=== PATIENT | male | born 1945 | race Caucasian/White ===

== ENCOUNTER 2017-02-04 12:28 | Inpatient (IN) | payer OTHER, MEDICARE ==
[~2017-02-04] VITALS: Ht 170.2 cm; Wt 74.6 kg
[2017-02-04] VITALS (7 sets, daily range): BP systolic 74–101; BP diastolic 40–85
[~2017-02-04 12:28] MED LIST: ACIPHEX20 MG PO; ALTACE5 MG PO; AMBIEN10 MG PO; AMLODIPINE BESYL5 MG PO; AMOX TR-K CLV1 EAC4 PO; AMOXICILLIN875 MG PO; ATROVENT 0.03%30 ML BOTH NARES; CALCET CREAMY1 EACH PO; CALCI-CHEW500 MG PO; CRESTOR40 MG PO; DILAUDID2 MG PO; DOCUSATE SODIU100 MG PO; ECOTRIN325 MG; ENALAPRIL MALEA20 MG PO; FUROSEMIDE40 MG PO; IMDUR30 MG PO; KLOR-CON 1010 ME1 PO; KLOR-CON M2020 MEQ PO; LANTUS 3 M100 UNITS1 SC; LANTUS 3 M100 UNITS1 SQ; LASIX20 MG PO; LEVETIRACETAM500 MG PO; LORAZEPAM0.5 MG PO; LYRICA75 MG PO; METOPROLOL SUC200 MG PO; METOPROLOL SUCC50 MG PO; MIRALAX255 GM PO; MORPHINE SULFAT15 M1 PO; NIASPAN,SLO-NI750 MG PO; NITROSTAT0.4 MG SL; NORVASC2.5 MG PO; NOVOLOG PE100 UNITS/ SC; NOVOLOG PE100 UNITS/ SQ; ONCE DAILY1 EACH PO; OXYCODONE HCL5 MG PO; PERCOCET 10/1 TABLET PO; PERCOCET 5/31 TABLET PO; PLAVIX75 MG PO; PROAIR HFA8.5 GM IH; PROTONIX40 MG PO; PROVENTIL,2.5 MG/3 M PO; REGLAN10 MG PO; SPIRIVA1 INHALATI IH; SYMBICORT60 INHALAT IH; TOPROL XL50 MG PO; TRAZODONE HCL50 MG PO; VICODIN ES 7.51 EAC1; VITAMIN B-12500 MC5 SL; VITAMIN B12-FO1 EACH PO; VITAMIN D22000 UNIT PO; VITAMIN D35000 UNIT PO; ZOLOFT100 MG PO
[2017-02-04 13:47] LABS: CREATININE 6.5 mg/dL (0.6-1.3)
[2017-02-04 14:01] LABS: ADD MIUA? YES; BILIRUBIN NEGATIVE; BLOOD NEGATIVE; COLOR DK YELLOW ((YELLOW)); GLUCOSE (STRIP) NEGATIVE; KETONES NEGATIVE; LEUKOCYTES NEGATIVE; NITRITE NEGATIVE; PROTEIN (STRIP) 30; SPECIFIC GRAVITY 1.024 (1.000-1.030); UROBILINOGEN 0.2 MG/DL (0.2-1.0)
[2017-02-04 14:06] LABS: BACTERIA RARE /HPF; BUDDING YEAST 2+; EPITHELIAL CELLS RARE /HPF; HYALINE CASTS 0-5 /LPF; MUCUS TRACE /LPF; RED BLOOD CELLS 0-5 /HPF (0-5); UCUL ADDED? NO; WHITE BLOOD CELLS 0-5 /HPF (0-5)
[2017-02-04 14:36] LABS: EOSINOPHIL (%) 0.1 % (0-5); HEMATOCRIT 32.9 % (38.0-50.0); IMMATURE GRANULOCYTE (%) 0.8 % (0.0-0.7); IMMATURE GRANULOCYTE COUNT 0.2 K/uL; INSTRUMENT ABS NEUTROPHIL CT 16.9 K/uL; LYMPHOCYTE COUNT 3.2 K/uL (1.0-2.8); MCH 30.3 PG (29.0-34.0); MCHC 32.5 G/DL (30.0-36.0); MCV 93.2 FL (86-99); MEAN PLAT.VOLUME 10.2 uM^3 (9.0-12.4); MONOCYTE (%) 4.5 % (3-12); NEUTROPHIL (%) 79.5 % (45-76); NEUTROPHIL COUNT 16.9 K/uL (1.8-6.4); PLATELET COUNT 272 K/uL (156-360); RBC DIS.WIDTH-SD 43.8 % (39-53); RED BLOOD COUNT 3.53 M/uL (4.00-5.50); WHITE BLOOD COUNT 21.2 K/uL (4.1-10.2)
[2017-02-04 14:57] LABS: TROP-I INTERPRETATION POSITIVE
[2017-02-04 15:01] LABS: TROPONIN-I 6.02 ng/mL (0.0-0.30)
[2017-02-04 15:04] LABS: CHLORIDE 90 mEq/L (99-109); POTASSIUM 3.8 mEq/L (3.7-5.4); SODIUM 140 mEq/L (136-147)
[2017-02-04 15:06] LABS: GLUCOSE 226 mg/dL (70-99)
[2017-02-04 15:07] LABS: ANION GAP 46 MEQ/L (2-14)
[2017-02-04 15:08] LABS: TOTAL BILIRUBIN 0.3 mg/dL (0.0-1.0)
[2017-02-04 15:09] LABS: ALKALINE PHOSPHATASE 66 IU/L (3-129)
[2017-02-04 15:10] LABS: GFR ESTIMATE (CALCULATED) 9 mL/min/
[2017-02-04 15:11] LABS: UREA NITROGEN (BUN) 79 mg/dL (9-23)
[2017-02-04 15:26] LABS: CREATINE KINASE 3761 IU/L (1-294)
[2017-02-04] MEDS ORDERED: SYMBICORT60 INHALAT IH (15:34)
[2017-02-04] MEDS ORDERED: IPRATROPIUM BRO30 ML BOTH NARES (15:36)
[2017-02-04] MEDS ORDERED: LO-DOSE ASPIRIN81 M1 PO (15:38)
[2017-02-04] MEDS ORDERED: LASIX40 MG PO (15:39)
[2017-02-04] MEDS ORDERED: ENDOCET 10-3251 EACH PO (15:43)
[2017-02-04] MEDS ORDERED: KEPPRA1000 MG PO (15:44)
[2017-02-04] MEDS ORDERED: DEPAKOTE250 MG PO (15:45)
[2017-02-04] MEDS ORDERED: SUCRALFATE1 GM/10 ML PO (15:54)
[2017-02-04] MEDS ORDERED: VITAMIN D32000 UNI1 PO (15:58)
[2017-02-04] MEDS ORDERED: METFORMIN HCL1000 MG PO (16:06)
[2017-02-04 19:01] LABS: BASE EXCESS -16.2 mEq/L (-3 to +3); BICARBONATE 9.6 mEq/L (22-26); CARBOXY HGB 0 % (0-5); METHEMOGLOBIN 0.1 % (0-1.5); PCO2 23 mm Hg (35-45); PO2 111 mm Hg (80-100)
[2017-02-04 19:02] LABS: COMMENTS - BLOOD GASES C+; DEVICE NC; O2 FLOW 2 L/MIN; SITE R GROIN; TOTAL RESP RATE 20 resp/min; pH 7.23 (7.35-7.45)
[2017-02-04 19:44] LABS: METH RESISTANT S AUREUS PCR POSITIVE (NEGATIVE)
[2017-02-04 19:45] LABS: PROBE CHECK PASS
[2017-02-04 21:50] LABS: CARBOXY HGB 0 % (0-5); METHEMOGLOBIN 0 % (0-1.5); PCO2 < 19 mm Hg (35-45); PO2 114 mm Hg (80-100)
[2017-02-04 21:51] LABS: COMMENTS - BLOOD GASES C+; DEVICE NC; O2 FLOW 2 L/MIN; SITE LEFT FEM ALINE; TOTAL RESP RATE 20 resp/min; pH 7.06 (7.35-7.45)
[2017-02-04 21:59] LABS: HEMATOCRIT 34.1 % (38.0-50.0); MCHC 32.6 G/DL (30.0-36.0); MCV 92.2 FL (86-99); MEAN PLAT.VOLUME 10.2 uM^3 (9.0-12.4); NRBC (%) 0.1 /100 WBC (0-0); PLATELET COUNT 256 K/uL (156-360); RBC DIS.WIDTH-SD 43.8 % (39-53); WHITE BLOOD COUNT 15.6 K/uL (4.1-10.2)
[2017-02-04 22:01] LABS: POINT-OF-CARE METER ID UU13113748
[2017-02-04 22:37] LABS: ANION GAP 47 MEQ/L (2-14); CHLORIDE 90 MEQ/L (99-109); GFR ESTIMATE (CALCULATED) 11 mL/min/; GLUCOSE 174 mg/dL (70-99); MAGNESIUM 3.3 mg/dl (1.3-2.7); POTASSIUM 3.6 MEQ/L (3.7-5.4); SAMPLE HEMOLYSIS CHECK 0; SAMPLE ICTERIC CHECK 0; SAMPLE LIPEMIA CHECK 0; SODIUM 142 MEQ/L (136-147); UREA NITROGEN (BUN) 78 mg/dL (9-23)
[2017-02-05] VITALS (9 sets, daily range): BP systolic 43–111; BP diastolic 26–67
[2017-02-05 00:02] LABS: BASE EXCESS -24.9 mEq/L (-3 to +3); BICARBONATE 4.7 mEq/L (22-26); CARBOXY HGB 0 % (0-5); COMMENTS - BLOOD GASES C+; DEVICE 980; FI02 80 %; MECHANICAL RATE 24 resp/min; METHEMOGLOBIN 0 % (0-1.5); MODE AC; PCO2 19 mm Hg (35-45); PO2 374 mm Hg (80-100); SITE A-LINE; TOTAL RESP RATE 30 resp/min
[2017-02-05 00:03] LABS: PEEP 5 CM/H20; TIDAL VOLUME 500 ML
[2017-02-05 06:20] LABS: CARBOXY HGB 0 % (0-5); COMMENTS - BLOOD GASES C+; DEVICE 980; FI02 30 %; METHEMOGLOBIN 0 % (0-1.5); MODE AC; PCO2 < 19 mm Hg (35-45); PO2 143 mm Hg (80-100); SITE A-LINE
[2017-02-05 06:21] LABS: MECHANICAL RATE 24 resp/min; PEEP 5 CM/H20; TIDAL VOLUME 500 ML; TOTAL RESP RATE 33 resp/min; pH < 6.90 (7.35-7.45)
[2017-02-05 06:34] LABS: TRIGLYCERIDES 349 MG/DL (Normal: <150)
[2017-02-05 07:57] LABS: TROP-I INTERPRETATION POSITIVE; TROPONIN-I 86.25 ng/mL (0.0-0.30)
[2017-02-05 08:16] LABS: ALKALINE PHOSPHATASE 65 IU/L (3-129); CHLORIDE 95 MEQ/L (99-109); GFR ESTIMATE (CALCULATED) 11 mL/min/; SODIUM 141 MEQ/L (136-147); TOTAL BILIRUBIN 0.4 MG/DL (0.0-1.0); UREA NITROGEN (BUN) 83 mg/dL (9-23)
[2017-02-05 08:18] LABS: GLUCOSE 81 mg/dL (70-99); POTASSIUM 5.5 MEQ/L (3.7-5.4)
[2017-02-05 08:19] LABS: CARBON DIOXIDE (BICARBONATE) < 5.0 MEQ/L (20-31); DIRECT BILIRUBIN 0.1 mg/dL (0.0-0.3); SAMPLE HEMOLYSIS CHECK 0; SAMPLE ICTERIC CHECK 0; SAMPLE LIPEMIA CHECK 0
[2017-02-05 09:11] LABS: CREATINE KINASE 18990 IU/L (1-294)
== END 2017-02-05 11:50 | DRG 871 ==
LOC: EME → EDBD 12:28 → ENRESERV 16:25 → EDOF 16:25 → ENRESERV 16:37 → 4WEST 17:59
PROVIDERS: Emergency Medicine; Internal Medicine Pulmonary Disease; Specialist
PROC: 5A1935Z Respiratory Ventilation, Less than 24 Consecutive Hours (ICD-10-PCS; principal; 2017-02-04)
PROC: 0BH17EZ Insertion of Endotracheal Airway into Trachea, Via Natural or Artificial Opening (ICD-10-PCS; principal; 2017-02-04)
PROC: 02HV33Z Insertion of Infusion Device into Superior Vena Cava, Percutaneous Approach (ICD-10-PCS; principal; 2017-02-04)
PROC: 04HY32Z Insertion of Monitoring Device into Lower Artery, Percutaneous Approach (ICD-10-PCS; 2017-02-05)
DX: A41.9 Sepsis, unspecified organism (principal); R65.21 Severe sepsis with septic shock; G93.41 Metabolic encephalopathy; N17.9 Acute kidney failure, unspecified; I21.4 Non-ST elevation (NSTEMI) myocardial infarction; M62.82 Rhabdomyolysis; E87.2 Acidosis; K92.1 Melena; R56.9 Unspecified convulsions; E11.65 Type 2 diabetes mellitus with hyperglycemia; T38.3X6A Underdosing of insulin and oral hypoglycemic [antidiabetic] drugs, initial encounter; Z91.128 Patient's intentional underdosing of medication regimen for other reason; E86.0 Dehydration; R68.0 Hypothermia, not associated with low environmental temperature; I25.10 Atherosclerotic heart disease of native coronary artery without angina pectoris; E78.5 Hyperlipidemia, unspecified; I10 Essential (primary) hypertension; J44.9 Chronic obstructive pulmonary disease, unspecified; G47.33 Obstructive sleep apnea (adult) (pediatric); K21.9 Gastro-esophageal reflux disease without esophagitis; F32.9 Major depressive disorder, single episode, unspecified; G89.29 Other chronic pain; Z66 Do not resuscitate; Z79.4 Long term (current) use of insulin; Z88.0 Allergy status to penicillin; Z95.1 Presence of aortocoronary bypass graft; Z95.5 Presence of coronary angioplasty implant and graft; Z91.14 Patient's other noncompliance with medication regimen; Z79.02 Long term (current) use of antithrombotics/antiplatelets; Z87.891 Personal history of nicotine dependence; Z86.73 Personal history of transient ischemic attack (TIA), and cerebral infarction without residual deficits
CPT/HCPCS: 36600; 70450; 71010; 71250; 74176; 76705; 80047; 80048; 80048 91; 80053; 80076; 81003; 82330; 82550; 82550 91; 82803; 82948; 83605; 83735; 84100; 84478; 84484; 85025; 85027; 87040; 87070; 87077; 87147; 87186; 87205; 87493; 87641; 93005; 94002; 99281; 99285; C1751; J0610; J1644; J1720; J2020; J2250; J2543; J2704; J7030; J7050; S0028; S0030